=== PATIENT | female | born 1985 | race African-American/Black ===

== ENCOUNTER 2016-12-07 19:05 | Emergency (ER) | payer MEDICAID, OTHER ==
[~2016-12-07] VITALS: Ht 167.6 cm; Wt 70.0 kg
[2016-12-07 21:44] VITALS: BP 146/89
== END 2016-12-07 22:14 | disposition home or self-care (01) ==
LOC: ER 19:38
DX: L03.114 Cellulitis of left upper limb (principal); Z88.0 Allergy status to penicillin; W57.XXXA Bitten or stung by nonvenomous insect and other nonvenomous arthropods, initial encounter; Y93.89 Activity, other specified; Y92.89 Other specified places as the place of occurrence of the external cause; Y99.8 Other external cause status
CPT/HCPCS: 81025; 99283

== ENCOUNTER 2017-05-08 19:29 | Emergency (ER) | payer MEDICAID ==
[~2017-05-08] VITALS: Ht 167.6 cm; Wt 65.0 kg
[2017-05-08 20:04] VITALS: BP 153/87
== END 2017-05-09 03:30 | disposition left against medical advice (07) ==
LOC: ER 19:29
DX: R51 Headache (principal); Z53.21 Procedure and treatment not carried out due to patient leaving prior to being seen by health care provider